=== PATIENT | male | born 1955 | race Caucasian/White ===

== ENCOUNTER 2017-01-20 07:56 | Day surgery (SDC) | payer OTHER ==
--- NOTE | 2017-01-19 11:33 | PREOPHP ---
DATE OF ADMISSION: 01/20/2017 HISTORY OF PRESENT ILLNESS: This 62-year-old gentleman is admitted for elective cataract surgery of the left eye. The patient has had decreased vision for the past 1-1/2 years and previously had a h istory of diabetic retinopathy requiring retinal laser photocoagulation in both eyes. The patient's systemic history is positive for insulin-dependent diabetes mellitus for the past 3 years, hypercho lesterolemia and hypertension. CURRENT MEDICATIONS INCLUDE: 1. Insulin. 2. Metformin. 3. Simvastatin. 4. Losartan. 5. Aspirin (discontinued 1 week prior to surgery). ALLERGIES: THERE ARE NO KNOWN ALLERGIES. PHYSICAL EXAMINATION: The visual acuity with correction is 20/100 in the right eye and hand motion vision in the left eye. Slit lamp examination reveals anterior cortical and nuclear sclerotic catar acts greater in the left eye than the right eye. In addition, the patient has posterior subcapsular cataract in the left eye. Examination of the retina reveals panretinal photocoagulation scars pres ent in both eyes. DIAGNOSIS: Advanced cataract, left eye. PLAN: Cataract extraction with lens implant, left eye. The risks and alternatives to the surgery h ave been discussed with the patient as well as the difficulty prognosticating visual outcome for the surgery on the left eye in light of the fact that the patient has advanced cataract with difficulty visualizing the retina and determining a prognostic outcome. The patient understands this and agre es to proceed with surgery in [facility] for obtaining improved visual acuity leading to a greate r ability to perform activities of daily living. Dictated By: HORACE ANN/JUAREZ Conf#: [id number] DID#: [id number]
[~2017-01-20] VITALS: Ht 165.1 cm; Wt 66.1 kg
[2017-01-20] VITALS (9 sets, daily range): BP systolic 146–177; BP diastolic 63–96; PULSE 96–106; RESP 13–18; Ht 165.1 cm; Wt 66.1 kg
[~2017-01-20 07:56] MED LIST: ASPI81TA3 PO; ATOR80TA75 PO; FERR-15 PO; LOSA50TA6 PO; METF-406 PO; TRAM50TA2 PO
[2017-01-20] MEDS ORDERED: DEXAMETHASONE 4 MG/ML 1 ML INJ ONE ×2 (08:44→08:45)
[2017-01-20] MEDS ORDERED: EPINEPHrine 0.1 MG/ML SYG ONE (08:44)
[2017-01-20] MEDS ORDERED: GENTAMICIN 80 MG INJ ONE (08:44)
[2017-01-20] MEDS ORDERED: CARBACHOL 0.01% 1.5 ML OPH INJ ONE (08:44)
[2017-01-20] MEDS ORDERED: LIDOCAINE 4% (MPF) 5 ML INJ ONE (08:44)
[2017-01-20] MEDS ORDERED: HYALURONATE/CHONDROITIN 1ML OPH INJ ONE (08:44)
[2017-01-20] MEDS ORDERED: CEFAZOLIN 1 GM INJ ONE (08:44)
[2017-01-20] MEDS ORDERED: EPINEPHrine 1 MG INJ ONE (08:45)
[2017-01-20] MEDS ORDERED: SIMV20TA PO (08:45)
[2017-01-20] MEDS ORDERED: LANT3I SC (08:46)
[2017-01-20] MEDS ORDERED: CHOL100062 PO (08:46)
[2017-01-20] MEDS ORDERED: INSU200I SQ (08:48)
[2017-01-20] MEDS ORDERED: CIPROFLOXACIN 0.3% 2.5 ML OPH OPER SCH (09:00)
[2017-01-20] MEDS ORDERED: CYCLOPENTOLATE/PHENYLEPH 2 ML OPH OPER SCH (09:00)
[2017-01-20] MEDS ORDERED: DICLOFENAC 0.1% 2.5 ML OPH OPER SCH (09:00)
[2017-01-20] MEDS ORDERED: TROPICAMIDE 1% 2 ML OPH OPER SCH (09:00)
[2017-01-20] MEDS ORDERED: INSULIN REGULAR 10 ML INJ SC ONE (09:30)
[2017-01-20] MEDS ORDERED: INSULIN REGULAR, HUMAN 100 UNIT/1 ML 3ML VIAL ONE (09:31)
[2017-01-20] MEDS ORDERED: PROPOFOL 20 ML ONE (10:47)
[2017-01-20] MEDS ORDERED: ONDANSETRON 4 MG INJ IV PRN (11:30)
[2017-01-20] MEDS ORDERED: FENTAnyl 50 MCG/ML VIAL IV PRN ×2 (11:30)
[2017-01-20] MEDS ORDERED: LABETALOL HCL 20MG INJ IV PRN (11:30)
[2017-01-20] MEDS ORDERED: MEPERIDINE 25 MG INJ IV PRN (11:30)
[2017-01-20] MEDS ORDERED: hydrALAzine 20 MG INJ IV PRN (11:30)
[2017-01-20] MEDS ORDERED: HYDROmorphONE (0.2 MG/ML) 10ML SYG IV PRN ×3 (11:30)
--- NOTE | 2017-01-20 12:18 | OPR ---
DATE OF OPERATION: 01/20/2017 PREOPERATIVE DIAGNOSIS: Mature cataract, left eye. POSTOPERATIVE DIAGNOSIS: Mature cataract, left eye. OPERATION PERFORMED: Cataract extraction with lens implant, left eye. SURGEON: Horace Andrade MD ANESTHESIOLOGIST: Dr. Woodruff. ANESTHESIA: Local standby. PROCEDURE: The patient was brought to the operating room and placed on the table with an IV in plac e and the patient attached to an secured entrance monitor. Oxygen was given via face mask. After some intravenous sedation was administered, local anesthesia was given using Xylocaine 2% with epinephrine, mixed with Marcaine 0.5%. This was given in a lid block and retrobulbar injection. The patient was then prepped and draped in the usual sterile manner. A wire lid speculum was inserted between the lids of the left eye. A Superblade was used to enter th e anterior chamber at the corneoscleral limbus at the 10:30 o'clock position. A separate incision wa s made using a 3.0-mm keratome which entered the corneoscleral junction at the 12 o'clock position. Through this 3-mm opening, an irrigating cystotome was introduced into the anterior chamber. The wili mber was filled with Viscoat and an anterior capsulotomy was performed. Balanced salt solution was t hen used for hydrodissection of the lens. A phacoemulsification handpiece was then brought into the field and introduced into the anterior chamber. Immediately upon attempting to sculpt the lens nucl eus, it was noted that the lens was extremely hard and a higher ultrasonic setting was required in o rder to remove the lens nucleus. This was done and the lens nucleus was emulsified over a more exte nded period of time. At the very end of the removal of the lens nucleus, it was noted that there wa s a break in the posterior capsule and some formed vitreous presented to the wound, this apparently from a fragment of the lens nuclear material that during the turbulence may have broken through the posterior capsule. A limited anterior vitrectomy was then performed until no vitreous was present a t the lips of the wound. Following this, inspection of the posterior capsule was made and it was noted that there was no lens cortical material left; however, there was sufficient capsular membrane to support a posterior cookie torin intraocular lens. Therefore, at this point, additional DisCoVisc was injected into the anterior chamber and then a 20.0 diopter posterior chamber intraocular lens was inserted into the posterior chamber anterior to the residual posterior lens capsule. The lens appeared to center well and despi te external pressure, did not appear to move. One 10-0 nylon suture was placed across the wound. Prior to tying, the DisCoVisc was aspirated from the anterior chamber. The suture was then tied, th e ends were cut short, and the knot was buried. At the end of the procedure, 0.5 mL of Ancef and 0.5 mL of dexamethasone were injected into the sub- [place]on space in the inferior conjunctiva fornix. The speculum was removed from the eye. Vigamox lori ps were placed on the surface of the eye and the eye was patched. The patient then left the operating room in satisfactory condition. Dictated By: HORACE ANN/JUAREZ Conf#: [id number] DID#: [id number]
== END 2017-01-20 13:20 | disposition home or self-care (01) ==
LOC: SDS 07:56
PROVIDERS: ATTEND Ophthalmology
DX: H25.12 Age-related nuclear cataract, left eye (principal); I10 Essential (primary) hypertension; E78.5 Hyperlipidemia, unspecified; E11.9 Type 2 diabetes mellitus without complications
CPT/HCPCS: 66984; 82962; J0171; J0690; J1100; J1580; J1815; V2632; Z7512; Z7610

== ENCOUNTER 2017-03-24 09:43 | Day surgery (SDC) | payer OTHER ==
--- NOTE | 2017-03-23 15:10 | PREOPHP ---
DATE OF ADMISSION: 03/24/2017 HISTORY OF PRESENT ILLNESS: This 62-year-old gentleman is admitted for elective cataract surgery of the right eye. The patient has had decreased vision over the past 1 and half years and 2 months ago underwent cataract surgery in the left eye with excellent visual improvement. The patient is also had diabetic retinopathy requiring retinal laser photocoagulation in both eyes. The patient is an insulin dependent diabetic and being treated for hypercholesteremia and hypertension. CURRENT MEDICATIONS: 1. Insulin. 2. Metformin. 3. Simvastatin. 4. Losartan. 5. Aspirin (discontinued 1 week prior to surgery). ALLERGIES: NO KNOWN ALLERGIES. PHYSICAL EXAMINATION: HEENT: The visual acuity best corrected is 20/80 in the right eye and 20/40 in the left eye. Slit lamp examination reveals nucleus sclerotic cataract changes in the right eye. The left eye has a posterior chamber intraocular lens in appropriate position. Applanation tonometry is 18 mmHg. Examination of the retina reveals evidence of the jack retinal photocoagulation scars. DIAGNOSIS: Cataract right eye. PLAN: Cataract extraction with lens implant right eye. The risks and alternatives of the surgery have been discussed with the patient, as well as the hopeful improvement of visual acuity leading to greater ability to perform activities of daily living. The patient understands this and agrees to proceed with surgery. Dictated By: Moisés Andrade MD /patricia/haydee /Document#: [id number]
[~2017-03-24] VITALS: Ht 165.1 cm; Wt 65.0 kg
[~2017-03-24 09:43] MED LIST changes: -ATOR80TA75 PO; +CHOL100062 PO; -FERR-15 PO; +INSU200I SQ; +LANT3I SC; +SIMV20TA PO; -TRAM50TA2 PO
[2017-03-24] MEDS ORDERED: ONDANSETRON 4 MG INJ IV PRN (10:00)
[2017-03-24] MEDS ORDERED: DIPHENHYDRAMINE 50 MG INJ IV PRN (10:00)
[2017-03-24] MEDS ORDERED: OXYCODONE/ACETAMINOPHEN (5/325) TAB PO PRN (10:00)
[2017-03-24] MEDS ORDERED: LABETALOL HCL 20MG INJ IV PRN (10:00)
[2017-03-24] MEDS ORDERED: INSULIN ASPART [NOVOLOG] 3 ML PEN SC ONE (10:00)
[2017-03-24] MEDS ORDERED: hydrALAzine 20 MG INJ IV PRN (10:00)
[2017-03-24] MEDS ORDERED: EPHEDrine SULFATE 50 MG/5 ML SYG IV PRN (10:00)
[2017-03-24] MEDS ORDERED: PROCHLORPERAZINE 10 MG INJ IV PRN (10:00)
[2017-03-24] MEDS ORDERED: FENTAnyl 50 MCG/ML VIAL IV PRN (10:00)
[2017-03-24] MEDS ORDERED: MEPERIDINE 25 MG INJ IV PRN (10:00)
[2017-03-24] MEDS ORDERED: ATOR20TA38 PO (10:46)
[2017-03-24] MEDS ORDERED: LOSA100T7 PO (10:46)
[2017-03-24] MEDS: TROPICAMIDE 1% 3ML OPH OPER SCH ×3 (10:48→11:02)
[2017-03-24] MEDS: CIPROFLOXACIN 0.3% 2.5 ML OPH OPER SCH ×3 (10:48→11:02)
[2017-03-24] MEDS: DICLOFENAC 0.1% 2.5 ML OPH OPER SCH ×3 (10:48→11:03)
[2017-03-24] MEDS: CYCLOPENTOLATE/PHENYLEPH 2 ML OPH OPER SCH ×3 (10:48→11:02)
[2017-03-24] MEDS ORDERED: AMLO5TAB4 PO (10:50)
[2017-03-24 11:31] VITALS: BP 143/67; PULSE 90; RESP 20
[2017-03-24 11:34] VITALS: Ht 165.1 cm; Wt 65.0 kg
[2017-03-24] MEDS ORDERED: MIDAZOLAM 1 MG/ML 2 ML INJ ONE (11:39)
[2017-03-24] MEDS ORDERED: FENTAnyl 50 MCG/ML VIAL ONE (11:39)
[2017-03-24] MEDS ORDERED: PROPOFOL 20 ML ONE (11:40)
[2017-03-24] MEDS ORDERED: GENTAMICIN 80 MG INJ ONE (11:58)
[2017-03-24] MEDS ORDERED: DEXAMETHASONE 4 MG/ML 1 ML INJ ONE (11:58)
[2017-03-24] MEDS ORDERED: EPINEPHrine 1 MG INJ ONE (11:58)
[2017-03-24] MEDS ORDERED: CEFAZOLIN 1 GM INJ ONE (11:58)
[2017-03-24] MEDS ORDERED: LIDOCAINE 4% (MPF) 5 ML INJ ONE (11:58)
[2017-03-24] MEDS ORDERED: DEXAMETHASONE 4 MG/ML 1 ML INJ INJ ONE (12:10)
[2017-03-24] MEDS ORDERED: HYALURONATE/CHONDROITIN 1ML OPH INJ IO ONE (12:10)
[2017-03-24] MEDS ORDERED: CEFAZOLIN 1 GM INJ INJ ONE (12:10)
[2017-03-24] MEDS ORDERED: CARBACHOL 0.01% 1.5 ML OPH INJ IO ONE (12:10)
[2017-03-24] MEDS ORDERED: ONDANSETRON 4 MG INJ ONE (12:25)
[2017-03-24] MEDS ORDERED: METOCLOPRAMIDE 10 MG INJ ONE (12:25)
[2017-03-24] MEDS ORDERED: PHENYLephrine (100 MCG/ML) 5ML SYG ONE (12:40)
[2017-03-24 12:51] VITALS: BP 92/56; PULSE 85; RESP 18
--- NOTE | 2017-03-24 12:56 | OPR ---
Date/Time of Note Date/Time of Note DATE: 03/24/17 TIME: 12:55 Operative Report Preoperative Diagnosis cataract od Operation/Procedure Performed cataract surgery od Surgeon: HORACE THOMPSON MD Anesthesia Type: MAC Estimated Blood Loss: none Transfusion Required: no Specimen: none Grafts/Implants lens implant Complications: no HORACE THOMPSON MD Mar 24, 2017 12:56
[2017-03-24 13:30] VITALS: BP 102/60; PULSE 78; RESP 16
--- NOTE | 2017-03-24 13:56 | OPR ---
DATE OF OPERATION: 03/24/2017 PREOPERATIVE DIAGNOSIS: Cataract, right eye. POSTOPERATIVE DIAGNOSIS: Cataract, right eye. OPERATION PERFORMED: Cataract extraction with lens implant, right eye. SURGEON: Moisés Andrade MD ANESTHESIOLOGIST: Aleena Pichardo MD ANESTHESIA: Local standby. PROCEDURE: The patient was brought to the operating room and placed on the table with an IV in place and the patient attached to an licensed guide. Oxygen was given via face mask. After some intravenous sedation was administered, local anesthesia was given using Xylocaine 2 percent with epinephrine, mixed with Marcaine 0.5 percent. This was given in a lid block and retrobulbar injection. The patient was then prepped and draped in the usual sterile manner. A wire lid speculum was inserted between the lids of the right eye. A Superblade was used to enter the anterior chamber at the corneoscleral limbus at the 10:30 o'clock position. A separate incision was made using a 3.0-mm keratome which entered the corneoscleral junction at the 12 o'clock position. Through this 3- mm opening, an irrigating cystotome was introduced into the anterior chamber. The chamber was filled with Viscoat and an anterior capsulotomy was performed. Balanced salt solution was then used for hydrodissection of the lens. A phacoemulsification handpiece was then brought into the field and introduced into the anterior chamber. The lens nucleus was emulsified using a deep groove and cracking the nucleus into quadrants. Following this, each quadrant was aspirated and emulsified at the pupillary margin. After this was completed, the irrigation/aspiration handpiece was brought to the field, introduced into the posterior chamber, and the lens cortical material was removed. When this was completed, additional Viscoat was injected into the anterior and posterior chambers. The 3-mm opening had its internal lips enlarged, and then the posterior chamber intraocular lens measuring 20.5 diopters ([employer] model LI61AO) was then injected into the posterior chamber using the lens injector system. After the leading haptic was introduced into the capsular bag and the lens optic was present in the center of the eye, the injector was removed and the trailing haptic was grasped with non-toothed forceps and introduced into the capsular fold superiorly. A Sinskey hook was then used to rotate the intraocular lens so that the lips were oriented in the horizontal meridian. One 10-0 nylon suture was placed across the wound. Prior to tying, the irrigation/aspiration handpiece was reintroduced into the anterior chamber to remove the Viscoat. Miochol was instilled to constrict the pupil, and then the 10-0 nylon suture was tied. The ends were cut short and then the knot was buried. Then, 0.5 mL of dexamethasone and 0.5 mL of Ancef were injected into the sub-Tenon space in the inferior fornix. Ciloxan drops were then placed on the surface of the eye. The speculum was removed and a patch was applied. The patient then left the operating room in satisfactory condition. Dictated By: Moisés Andrade MD /patricia/loreta /Document#: [id number]
== END 2017-03-24 14:20 | disposition home or self-care (01) ==
LOC: SDS 09:43
PROVIDERS: ATTEND Ophthalmology
DX: H26.9 Unspecified cataract (principal); I10 Essential (primary) hypertension; E11.9 Type 2 diabetes mellitus without complications; Z79.4 Long term (current) use of insulin; Z79.82 Long term (current) use of aspirin
CPT/HCPCS: 66984; 82962; J0171; J0690; J1100; J1580; J1815; J2250; J2370; J2405; J2765; J3010; V2632; Z7512; Z7610

== ENCOUNTER 2018-05-14 22:48 | Emergency (ER) | END 2018-05-14 23:56 | disposition home or self-care (01) ==